=== PATIENT | female | born 1975 | race American Indian/Alaskan Native ===

== ENCOUNTER 2020-07-29 17:32 | Observation (INO) | payer BC ==
[2020-07-29 18:24] LABS: Mean Corpuscular HGB Conc 28 % (30-34); Platelet Count 394 K/mm3 (140-440); Red Blood Count 2.98 M/mm3 (3.65-5.03)
[2020-07-29 18:28] LABS: Hemoglobin 4.9 gm/dl (10.1-14.3)
[2020-07-29 18:29] LABS: Hematocrit 17.2 % (30.3-42.9); Mean Corpuscular Volume 58 fl (79-97); Red Cell Distribution Width 24.3 % (13.2-15.2)
[2020-07-29 18:36] LABS: INR 1.14 (0.87-1.13)
[2020-07-29 18:37] LABS: Partial Thromboplastin Time 29.2 Sec. (24.2-36.6)
[2020-07-29] MEDS ORDERED: SODIUM CHLORIDE 0.9% 500 ML 500 ML IV ONE (19:20)
[2020-07-29 19:33] LABS: Alanine Aminotransferase 21 units/L (7-56); Albumin 3.6 g/dL (3.9-5); Blood Urea Nitrogen 9 mg/dL (7-17); Hemolysis Index 14
[2020-07-29 19:36] LABS: BUN/Creatinine Ratio 15
--- NOTE | 2020-07-29 19:46 | Emergency Department Report ---
ED General Adult HPI - General Chief complaint: Recheck/Abnormal Lab/Rx Stated complaint: LOW HEMOGLOBIN PUI?: No Time Seen by Provider: 07/29/20 19:02 Source: patient, RN notes reviewed Mode of arrival: Ambulatory Limitations: No Limitations - History of Present Illness Initial comments: The patient was evaluated in the emergency department for symptoms described in the history of present illness. He/she was evaluated in the context of the global COVID-19 pandemic, which necessitated consideration that the patient might be at risk for infection with the virus that causes COVID-19. Institutional protocols and algorithms that pertain to the evaluation of patients at risk for COVID-19 are in a state of rapid change based on information released by regulatory bodies including the CDC and federal and state organizations. These policies and algorithms were followed during the patient's care in the emergency department. Please note that these policies, procedures and recommendations changed on a rapid basis. During the history and physical examination, I am chaperoned by Juno Goddard This is a 45-year-old female. She is not known to myself previously. She has a history of stroke, DVT, PFO, and is currently on Eliquis. 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 She has no residual stroke deficits. She is referred to the emergency room by her primary care doctor at [place] for asymptomatic anemia. Patient had routine laboratory testing today, which demonstrated anemia. Patient denies all complaints at this time. She denies heavy vaginal bleeding, hematemesis and bright red blood per rectum, new/different exertional shortness of breath. Patient states she feels like she is in her usual state of health; she indicates that if she were not referred to the emergency room by her primary care doctor, she would not have presented. -: This morning Severity scale (0 -10): 0 Improves with: none Worsens with: none Associated Symptoms: denies other symptoms - Related Data Allergies Allergy/AdvReac Type Severity Reaction Status Date / Time No Known Allergies Allergy Unverified 07/29/20 17:56 ED Review of Systems ROS: Stated complaint: LOW HEMOGLOBIN Other details as noted in HPI Comment: All other systems reviewed and negative ED Past Medical Hx - Past Medical History Previous Medical History?: Yes Hx CVA: Yes Hx Deep Vein Thrombosis: Yes Additional medical history: DVT to legs on Eliquis ED Physical Exam - General Limitations: No Limitations General appearance: alert, in no apparent distress - Head Head exam: Present: atraumatic, normocephalic - Eye Eye exam: Present: normal appearance, PERRL, EOMI, other (Bilateral conjunctiva are pale). Absent: nystagmus - ENT ENT exam: Present: normal exam, normal orophraynx, mucous membranes moist, normal external ear exam - Neck Neck exam: Present: normal inspection, full ROM. Absent: tenderness, meningismus - Respiratory Respiratory exam: Present: normal lung sounds bilaterally. Absent: respiratory distress, wheezes, rales, rhonchi, stridor, decreased breath sounds - Cardiovascular Cardiovascular Exam: Present: regular rate, normal rhythm, normal heart sounds. Absent: bradycardia, tachycardia, irregular rhythm, systolic murmur, diastolic murmur, rubs, gallop - GI/Abdominal GI/Abdominal exam: Present: soft, normal bowel sounds. Absent: distended, tenderness, guarding, rebound, rigid, pulsatile mass - Rectal Rectal exam: Present: normal inspection, normal rectal tone, heme (-) stool, other (Chaperoned by juno goddard). Absent: heme (+) stool, black stool, bloody stool - Extremities Exam Extremities exam: Present: normal inspection, full ROM, normal capillary refill, other (2+ pulses noted in the bilateral upper and lower extremities. There is no palpable cord. negative Homans sign. Muscular compartments are soft. The pelvis is stable.). Absent: pedal edema, calf tenderness - Back Exam Back exam: Present: normal inspection, full ROM. Absent: tenderness, CVA tenderness (R), CVA tenderness (L), paraspinal tenderness, vertebral tenderness - Neurological Exam Neurological exam: Present: alert, other (No facial droop. Tongue midline. Extraocular movements intact bilaterally. Facial sensation intact to light touch in V1, V2, V3 distribution bilaterally. 5 and a 5 strength in 4 extremities. Sensation intact to light touch in 4 extremities.). Absent: motor sensory deficit - Psychiatric Psychiatric exam: Present: normal affect, normal mood - Skin Skin exam: Present: warm, dry, intact, normal color. Absent: rash ED Course Vital Signs 07/29/20 07/29/20 07/29/20 17:56 19:16 19:21 Temperature 98.8 F Pulse Rate 69 70 Respiratory 16 16 Rate Blood Pressure 160/80 Blood Pressure 170/88 [Right] O2 Sat by Pulse 100 100 Oximetry 07/29/20 07/29/20 20:30 20:45 Temperature 97.9 F 98.3 F Pulse Rate 70 70 Respiratory 18 15 Rate Blood Pressure 149/83 144/72 Blood Pressure [Right] O2 Sat by Pulse 100 100 Oximetry - Reevaluation(s) Reevaluation #1: 07/29/20 19:59 Differential diagnosis, including but not limited to: Laboratory error, anemia, GI bleed, renal insufficiency, hepatic insufficiency Consumptive coagulopathy Assessment and plan: 45-year-old female, here with asymptomatic anemia. She is afebrile with reassuring vital signs with the exception of elevated blood pressure. She denies gynecologic bleeding, rectal bleeding, and hematemesis. She is guaiac negative on rectal examination. Laboratory studies otherwise unremarkable. We recommended packed red blood cell transfusion, and admission for observation. Patient is amenable to this plan of care. We will discuss with hospitalist to arrange definitive care. She last took her Eliquis at 430 this afternoon. 07/29/20 19:59 Reevaluation #2: 07/29/20 21:41 Dr Carlos Sullivan to admit ED Medical Decision Making - Lab Data Result diagrams: 07/29/20 18:13 07/29/20 19:09 Vital Signs 07/29/20 07/29/20 07/29/20 17:56 19:16 19:21 Temperature 98.8 F Pulse Rate 69 70 Respiratory 16 16 Rate Blood Pressure 160/80 Blood Pressure 170/88 [Right] O2 Sat by Pulse 100 100 Oximetry Lab Results 07/29/20 07/29/20 07/29/20 Range/Units 18:13 18:13 18:13 WBC 5.3 (4.5-11.0) K/mm3 RBC 2.98 L (3.65-5.03) M/mm3 Hgb 4.9 L* (10.1-14.3) gm/dl Hct 17.2 L* (30.3-42.9) % MCV 58 L (79-97) fl MCH 16 L (28-32) pg MCHC 28 L (30-34) % RDW 24.3 H (13.2-15.2) % Plt Count 394 (140-440) K/mm3 PT 14.5 (12.2-14.9) Sec. INR 1.14 H (0.87-1.13) APTT 29.2 (24.2-36.6) Sec. Sodium (137-145) mmol/L Potassium (3.6-5.0) mmol/L Chloride (98-107) mmol/L Carbon Dioxide (22-30) mmol/L Anion Gap mmol/L BUN (7-17) mg/dL Creatinine (0.6-1.2) mg/dL Estimated GFR ml/min BUN/Creatinine Ratio % Glucose (65-100) mg/dL Calcium (8.4-10.2) mg/dL Magnesium (1.7-2.3) mg/dL Total Bilirubin (0.1-1.2) mg/dL AST (5-40) units/L ALT (7-56) units/L Alkaline Phosphatase (35-129) units/L Total Creatine Kinase (30-135) units/L Total Protein (6.3-8.2) g/dL Albumin (3.9-5) g/dL Albumin/Globulin Ratio % HCG, Quant (0-4) mIU/mL Blood Type B POSITIVE Antibody Screen Negative Crossmatch See Detail 07/29/20 07/29/20 Range/Units 19:09 19:09 WBC (4.5-11.0) K/mm3 RBC (3.65-5.03) M/mm3 Hgb (10.1-14.3) gm/dl Hct (30.3-42.9) % MCV (79-97) fl MCH (28-32) pg MCHC (30-34) % RDW (13.2-15.2) % Plt Count (140-440) K/mm3 PT (12.2-14.9) Sec. INR (0.87-1.13) APTT (24.2-36.6) Sec. Sodium 140 (137-145) mmol/L Potassium 4.3 (3.6-5.0) mmol/L Chloride 110.3 H (98-107) mmol/L Carbon Dioxide 20 L (22-30) mmol/L Anion Gap 14 mmol/L BUN 9 (7-17) mg/dL Creatinine 0.6 (0.6-1.2) mg/dL Estimated GFR > 60 ml/min BUN/Creatinine Ratio 15 % Glucose 86 (65-100) mg/dL Calcium 8.0 L (8.4-10.2) mg/dL Magnesium 1.90 (1.7-2.3) mg/dL Total Bilirubin 0.20 (0.1-1.2) mg/dL AST 21 (5-40) units/L ALT 21 (7-56) units/L Alkaline Phosphatase 70 (35-129) units/L Total Creatine Kinase 96 (30-135) units/L Total Protein 6.6 (6.3-8.2) g/dL Albumin 3.6 L (3.9-5) g/dL Albumin/Globulin Ratio 1.2 % HCG, Quant < 2 (0-4) mIU/mL Blood Type Antibody Screen Crossmatch Critical Care Time: Yes Critical care time in (mins) excluding proc time.: 35 Critical care attestation.: If time is entered above; I have spent that time in minutes in the direct care of this critically ill patient, excluding procedure time. ED Disposition Clinical Impression: Anticoagulated, Anemia, History of hypertension, History of stroke, History of DVT (deep vein thrombosis) Disposition: OP ADMIT IP TO THIS HOSP Is pt being admited?: Yes Does the pt Need Aspirin: No Condition: Good Referrals: PRIMARY CARE, [Primary Care Provider] - 3-5 Days
[2020-07-29] MEDS ORDERED: MAGNESIUM HYDROXIDE (MOM) ORAL LIQD UDC PO PRN (22:28)
[2020-07-29] MEDS ORDERED: ACETAMINOPHEN 325 MG TAB PO PRN (22:28)
[2020-07-29] MEDS ORDERED: ONDANSETRON 4 MG/2 ML INJ IV PRN (22:28)
--- NOTE | 2020-07-29 22:35 | History and Physical Report ---
History of Present Illness Date of examination: 07/29/20 Date of admission: 07/29/20 21:41 Chief complaint: Abnormal Labs. History of present illness: 45-year-old female with known history of CVA, DVT and PFO ( Patent foramen Ovale) and currently on Eliquis sent to the emergency room today by her primary care physician for an abnormal lab. Patient had a routine lab tests done about 24 hours prior to reporting to the emergency room and hemoglobin was said to be low at 4.5. Patient denies any vaginal bleeding, no hematemesis, no bright red blood per rectum, denies any chest pain or shortness of breath. Patient denies any headache or dizziness. Patient indicates that he has known history of blood clots and has been on anticoagulation. She follows up with primary care physician at [facility]. Work-up in the emergency room today reveals hemoglobin of 4.9 and hematocrit of 17.2. Patient has been scheduled for blood transfusion. Attempts has been made to have patient's record from [facility]. Past History Past Medical History: DVT, hypertension, stroke Past Surgical History: Social history: no significant social history Family history: no significant family history Medications and Allergies Allergies Allergy/AdvReac Type Severity Reaction Status Date / Time No Known Allergies Allergy Verified 07/29/20 22:33 Review of Systems Constitutional: no fever, no chills Ears, nose, mouth and throat: no nasal congestion, no sore throat Cardiovascular: no chest pain, no palpitations Respiratory: no cough, no shortness of breath Gastrointestinal: no abdominal pain, no nausea, no vomiting, no diarrhea, no BRBPR, no melena Genitourinary Female: no pelvic pain, no flank pain, no dysuria, no hematuria Musculoskeletal: no neck pain, no low back pain Integumentary: no rash, no pruritis Neurological: no headaches, no confusion Psychiatric: no anxiety, no depression Endocrine: no polyphagia, no polydipsia, no polyuria, no nocturia Exam - Constitutional Vitals: Temp Pulse Resp BP Pulse Ox 98.1 F 70 14 143/77 100 07/29/20 22:10 07/29/20 22:20 07/29/20 22:20 07/29/20 22:20 07/29/20 22:20 General appearance: Present: no acute distress, well-nourished, other (Mo derately pale) - EENT Eyes: Present: PERRL, EOM intact. Absent: scleral icterus ENT: hearing intact, clear oral mucosa, dentition normal - Neck Neck: Present: supple, normal ROM - Respiratory Respiratory effort: normal Respiratory: bilateral: CTA - Cardiovascular Rhythm: regular Heart Sounds: Present: S1 & S2. Absent: gallop, systolic murmur, diastolic murmur, rub, click - Extremities Extremities: no ischemia, pulses intact, pulses symmetrical, No edema, Full ROM Peripheral Pulses: within normal limits - Abdominal General gastrointestinal: Present: soft, non-tender, non-distended, normal bowel sounds. Absent: mass - Integumentary Integumentary: Present: clear, warm, dry. Absent: rash - Musculoskeletal Musculoskeletal: strength equal bilaterally - Psychiatric Psychiatric: appropriate mood/affect, intact judgment & insight, memory intact, cooperative - Neurologic Neurologic: CNII-XII intact, no focal deficits, moves all extremities Results - Labs CBC & Chem 7: 07/29/20 18:13 07/29/20 19:09 Labs: Abnormal lab results 07/29/20 07/29/20 07/29/20 Range/Units 18:13 18:13 18:13 RBC 2.98 L (3.65-5.03) M/mm3 Hgb 4.9 L* (10.1-14.3) gm/dl Hct 17.2 L* (30.3-42.9) % MCV 58 L (79-97) fl MCH 16 L (28-32) pg MCHC 28 L (30-34) % RDW 24.3 H (13.2-15.2) % INR 1.14 H (0.87-1.13) Chloride (98-107) mmol/L Carbon Dioxide (22-30) mmol/L Calcium (8.4-10.2) mg/dL Albumin (3.9-5) g/dL Crossmatch See Detail 07/29/20 Range/Units 19:09 RBC (3.65-5.03) M/mm3 Hgb (10.1-14.3) gm/dl Hct (30.3-42.9) % MCV (79-97) fl MCH (28-32) pg MCHC (30-34) % RDW (13.2-15.2) % INR (0.87-1.13) Chloride 110.3 H (98-107) mmol/L Carbon Dioxide 20 L (22-30) mmol/L Calcium 8.0 L (8.4-10.2) mg/dL Albumin 3.6 L (3.9-5) g/dL Crossmatch Assessment and Plan - Patient Problems (1) Anemia Current Visit: Yes Status: Acute Plan to address problem: Patient is asymptomatic. Patient is being prepared for blood transfusion. Stool guaiac done in the emergency room was negative. We will monitor CBC. (2) History of DVT (deep vein thrombosis) Current Visit: Yes Status: Acute Plan to address problem: Patient has been on Eliquis. We will hold anticoagulation at this time in view of the anemia Will consult heme/Onc for evaluation and recommendation regarding anticoagulation. (3) History of hypertension Current Visit: Yes Status: Acute Plan to address problem: We will resume routine home medications once reconciled and monitor vital signs closely. (4) History of stroke Current Visit: Yes Status: Acute Plan to address problem: No residual deficits. (5) DVT prophylaxis Current Visit: Yes Status: Acute Plan to address problem: Patient placed on sequential compression device. (6) Full code status Current Visit: Yes Status: Acute Plan to address problem: Patient is a full code.
[2020-07-30 06:19] LABS: Mean Corpuscular HGB Conc 30 % (30-34); Platelet Count 374 K/mm3 (140-440); Red Blood Count 2.91 M/mm3 (3.65-5.03)
[2020-07-30 06:29] LABS: INR 1.08 (0.87-1.13)
[2020-07-30 06:42] LABS: Blood Urea Nitrogen 10 mg/dL (7-17); Calcium 8.7 mg/dL (8.4-10.2); Hemolysis Index 140
[2020-07-30 06:47] LABS: BUN/Creatinine Ratio 20
[2020-07-30 07:05] LABS: Hematocrit 18.2 % (30.3-42.9); Hemoglobin 5.5 gm/dl (10.1-14.3); Mean Corpuscular Volume 63 fl (79-97)
[2020-07-30] MEDS ORDERED: SODIUM CHLORIDE 0.9% 500 ML 500 ML IV SCH (09:00)
[2020-07-30 09:41] LABS: Anisocytosis 3+; Total Cells Counted 100
[2020-07-30 09:42] LABS: Hypochromasia 2+; Ovalocytes Few; Schistocytes Few
[2020-07-30 09:43] LABS: Platelet Estimate Consistent w Auto
[2020-07-30 10:10] LABS: Hematocrit 20.4 % (30.3-42.9)
[2020-07-30 10:31] LABS: Hemoglobin 5.9 gm/dl (10.1-14.3)
[2020-07-30] MEDS ORDERED: SODIUM CHLORIDE 0.9% 500 ML 500 ML IV NR (11:09)
--- NOTE | 2020-07-30 11:49 | Progress Note ---
Assessment and Plan Assessment and plan: 45-year-old female with known history of CVA, DVT and PFO ( Patent foramen Ovale) and currently on Eliquis sent to the emergency room today by her primary care physician for an abnormal lab. Patient had a routine lab tests done about 24 hours prior to reporting to the emergency room and hemoglobin was said to be low at 4.5. Patient denies any vaginal bleeding, no hematemesis, no bright red blood per r ectum, denies any chest pain or shortness of breath. Patient denies any headache or dizziness. Patient indicates that he has known history of blood clots and has been on anticoagulation. She follows up with primary care physician at [facility]. Work-up in the emergency room today reveals hemoglobin of 4.9 and hematocrit of 17.2. Patient has been scheduled for blood transfusion. Attempts has been made to have patient's record from [facility].-Reattempt is being made this morning 07/30: Patient in no acute distress at this time. Will give 2 additional units of blood the recent information provided by the patient about menorrhagia. Await hematology evaluation. We will still awaiting records from [facility] but I believe patient will need to follow back up at [place] for possible reevaluation of PFO for possible closure. 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 They may also at the same time evaluate for possible IVC filter. 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 and I did encourage her to use her compression stockings and to walk around often. Anticipate discharge in a.m. if no other work-up is required. Also an outpatient follow-up with [employer] [facility] is recommended (1) Anemia-iron deficiency Current Visit: Yes Status: Acute Plan to address problem: Patient is asymptomatic. Patient is being prepared for blood transfusion. Stool guaiac done in the emergency room was negative. We will monitor CBC. (2) History of DVT (deep vein thrombosis) Current Visit: Yes Status: Acute Plan to address problem: Patient has been on Eliquis. We will hold anticoagulation at this time in view of the anemia Will consult heme/Onc for evaluation and recommendation regarding anticoagulation. (3) History of hypertension Current Visit: Yes Status: Acute Plan to address problem: We will resume routine home medications once reconciled and monitor vital signs closely. (4) History of stroke Current Visit: Yes Status: Acute Plan to address problem: No residual deficits. (5) menorrhagia (6) DVT prophylaxis Current Visit: Yes Status: Acute Plan to address problem: Patient placed on sequential compression device. (7) Full code status Current Visit: Yes Status: Acute Plan to address problem: Patient is a full code. History Interval history: Patient seen and examined resting comfortably no acute distress. She tells me that she was diagnosed with a stroke and PFO at [facility]. She also had a lower extremity DVT for which she was put on Eliquis. Prior to that she uses 3 pads a day for her menses but now she uses about 15. Hospitalist Physical - Physical exam Narrative exam: VITAL SIGNS: Reviewed. GENERAL: The patient appears normally developed, Vital signs as documented. HEAD: No signs of head trauma. EYES: Pupils are equal. Extraocular motions intact. EARS: Hearing grossly intact. MOUTH: Oropharynx is normal. NECK: No adenopathy, no JVD. CHEST: Chest with clear breath sounds bilaterally. No wheezes, rales, or rhonchi. CARDIAC: Regular rate and rhythm. S1 and S2, without murmurs, gallops, or rubs . VASCULAR: No Edema. Peripheral pulses normal and equal in all extremities. ABDOMEN: Soft, non tender and non distended. No rebound or guarding, and no masses palpated. Bowel Sounds normal. MUSCULOSKELETAL: Good range of motion of all major joints. Extremities without clubbing, cyanosis or edema. NEUROLOGIC EXAM: Alert and oriented x 3 No focal sensory or strength deficits. Speech normal. Follows commands. PSYCHIATRIC: Mood normal. SKIN: detail exam as documented in skin assessment - Constitutional Vitals: Temp Pulse Resp BP Pulse Ox 98.5 F 65 20 148/65 98 07/30/20 11:00 07/30/20 11:00 07/30/20 11:00 07/30/20 11:00 07/30/20 11:00 General appearance: Present: no acute distress, well-nourished, other (Moderately pale) Results - Labs CBC & Chem 7: 07/30/20 09:42 07/30/20 05:40 Labs: Laboratory Last Values WBC 5.5 K/mm3 (4.5-11.0) 07/30/20 05:40 RBC 2.91 M/mm3 (3.65-5.03) L 07/30/20 05:40 Hgb 5.9 gm/dl (10.1-14.3) L* 07/30/20 09:42 Hct 20.4 % (30.3-42.9) L 07/30/20 09:42 MCV 63 fl (79-97) L 07/30/20 05:40 MCH 19 pg (28-32) L 07/30/20 05:40 MCHC 30 % (30-34) 07/30/20 05:40 RDW 31.0 % (13.2-15.2) H 07/30/20 05:40 Plt Count 374 K/mm3 (140-440) 07/30/20 05:40 Add Manual Diff Complete 07/30/20 05:40 Total Counted 100 07/30/20 05:40 Seg Neuts % (Manual) 69.0 % (40.0-70.0) 07/30/20 05:40 Lymphocytes % (Manual) 20.0 % (13.4-35.0) 07/30/20 05:40 Monocytes % (Manual) 10.0 % (0.0-7.3) H 07/30/20 05:40 Eosinophils % (Manual) 1.0 % (0.0-4.3) 07/30/20 05:40 Nucleated RBC % Not Reportable 07/30/20 05:40 Seg Neutrophils # Man 3.8 K/mm3 (1.8-7.7) 07/30/20 05:40 Band Neutrophils # 0.0 K/mm3 07/30/20 05:40 Lymphocytes # (Manual) 1.1 K/mm3 (1.2-5.4) L 07/30/20 05:40 Abs React Lymphs (Man) 0.0 K/mm3 07/30/20 05:40 Monocytes # (Manual) 0.6 K/mm3 (0.0-0.8) 07/30/20 05:40 Eosinophils # (Manual) 0.1 K/mm3 (0.0-0.4) 07/30/20 05:40 Basophils # (Manual) 0.0 K/mm3 (0.0-0.1) 07/30/20 05:40 Metamyelocytes # 0.0 K/mm3 07/30/20 05:40 Myelocytes # 0.0 K/mm3 07/30/20 05:40 Promyelocytes # 0.0 K/mm3 07/30/20 05:40 Blast Cells # 0.0 K/mm3 07/30/20 05:40 WBC Morphology Not Reportable 07/30/20 05:40 Hypersegmented Neuts Not Reportable 07/30/20 05:40 Hyposegmented Neuts Not Reportable 07/30/20 05:40 Hypogranular Neuts Not Reportable 07/30/20 05:40 Smudge Cells Not Reportable 07/30/20 05:40 Toxic Granulation Not Reportable 07/30/20 05:40 Toxic Vacuolation Not Reportable 07/30/20 05:40 Dohle Bodies Not Reportable 07/30/20 05:40 Pelger-Huet Anomaly Not Reportable 07/30/20 05:40 Henrique Rods Not Reportable 07/30/20 05:40 Platelet Estimate Consistent w auto 07/30/20 05:40 Clumped Platelets Not Reportable 07/30/20 05:40 Plt Clumps, EDTA Not Reportable 07/30/20 05:40 Large Platelets Not Reportable 07/30/20 05:40 Giant Platelets Not Reportable 07/30/20 05:40 Platelet Satelliting Not Reportable 07/30/20 05:40 Plt Morphology Comment Not Reportable 07/30/20 05:40 RBC Morphology Not Reportable 07/30/20 05:40 Dimorphic RBCs Not Reportable 07/30/20 05:40 Polychromasia Not Reportable 07/30/20 05:40 Hypochromasia 2+ 07/30/20 05:40 Poikilocytosis Not Reportable 07/30/20 05:40 Anisocytosis 3+ 07/30/20 05:40 Microcytosis 2+ 07/30/20 05:40 Macrocytosis Not Reportable 07/30/20 05:40 Spherocytes Not Reportable 07/30/20 05:40 Pappenheimer Bodies Not Reportable 07/30/20 05:40 Sickle Cells Not Reportable 07/30/20 05:40 Target Cells Not Reportable 07/30/20 05:40 Tear Drop Cells Not Reportable 07/30/20 05:40 Ovalocytes Few 07/30/20 05:40 Helmet Cells Not Reportable 07/30/20 05:40 [place] Bodies Not Reportable 07/30/20 05:40 [place] Rings Not Reportable 07/30/20 05:40 Winnie Cells Not Reportable 07/30/20 05:40 Bite Cells Not Reportable 07/30/20 05:40 Crenated Cell Not Reportable 07/30/20 05:40 Elliptocytes Not Reportable 07/30/20 05:40 Acanthocytes (Spur) Not Reportable 07/30/20 05:40 Rouleaux Not Reportable 07/30/20 05:40 Hemoglobin C Crystals Not Reportable 07/30/20 05:40 Schistocytes Few 07/30/20 05:40 Malaria parasites Not Reportable 07/30/20 05:40 Christiano Bodies Not Reportable 07/30/20 05:40 Hem Pathologist Commnt No 07/30/20 05:40 PT 13.9 Sec. (12.2-14.9) 07/30/20 05:40 INR 1.08 (0.87-1.13) 07/30/20 05:40 APTT 29.2 Sec. (24.2-36.6) 07/29/20 18:13 Sodium 137 mmol/L (137-145) 07/30/20 05:40 Potassium 4.5 mmol/L (3.6-5.0) 07/30/20 05:40 Chloride 109.6 mmol/L (98-107) H 07/30/20 05:40 Carbon Dioxide 19 mmol/L (22-30) L 07/30/20 05:40 Anion Gap 13 mmol/L 07/30/20 05:40 BUN 10 mg/dL (7-17) 07/30/20 05:40 Creatinine 0.5 mg/dL (0.6-1.2) L 07/30/20 05:40 Estimated GFR > 60 ml/min 07/30/20 05:40 BUN/Creatinine Ratio 20 % 07/30/20 05:40 Glucose 83 mg/dL (65-100) 07/30/20 05:40 Calcium 8.7 mg/dL (8.4-10.2) 07/30/20 05:40 Magnesium 1.90 mg/dL (1.7-2.3) 07/29/20 19:09 Total Bilirubin 0.20 mg/dL (0.1-1.2) 07/29/20 19:09 AST 21 units/L (5-40) 07/29/20 19:09 ALT 21 units/L (7-56) 07/29/20 19:09 Alkaline Phosphatase 70 units/L (35-129) 07/29/20 19:09 Total Creatine Kinase 96 units/L (30-135) 07/29/20 19:09 Total Protein 6.6 g/dL (6.3-8.2) 07/29/20 19:09 Albumin 3.6 g/dL (3.9-5) L 07/29/20 19:09 Albumin/Globulin Ratio 1.2 % 07/29/20 19:09 HCG, Quant < 2 mIU/mL (0-4) 07/29/20 19:09 Blood Type B POSITIVE 07/29/20 18:13 Antibody Screen Negative 07/29/20 18:13 Crossmatch See Detail 07/29/20 18:13 Active Medications - Current Medications Current Medications: Generic Name Dose Route Start Last Admin Trade Name Freq PRN Reason Stop Dose Admin Acetaminophen 650 mg 07/29/20 22:28 Acetaminophen 325 Mg Tab PO Q4H PRN Pain MILD(1-3)/Fever >100.5/PASTOR Atorvastatin Calcium 80 mg 07/30/20 22:00 Atorvastatin 40 Mg Tab PO QHS FAINA Sodium Chloride 500 mls @ 0 mls/hr 07/30/20 09:00 07/30/20 11:07 Nacl 0.9% 500 Ml IV 07/30/20 17:00 100 mls/hr ONCE FAINA Administration As Directed Sodium Chloride 500 mls @ 0 mls/hr 07/30/20 11:09 07/30/20 11:12 Nacl 0.9% 500 Ml IV 07/30/20 23:00 100 mls/hr ONCE NR Administration As Directed Magnesium Hydroxide 30 ml 07/29/20 22:28 Magnesium Hydroxide (Mom) Oral Liqd Udc PO Q4H PRN Constipation Ondansetron HCl 4 mg 07/29/20 22:28 Ondansetron 4 Mg/2 Ml Inj IV Q8H PRN Nausea And Vomiting Sodium Chloride 10 ml 07/30/20 10:00 07/30/20 11:07 Sodium Chloride 0.9% 10 Ml Flush Syringe IV 10 ml BID FAINA Administration Sodium Chloride 10 ml 07/29/20 22:28 Sodium Chloride 0.9% 10 Ml Flush Syringe IV PRN PRN LINE FLUSH
--- NOTE | 2020-07-30 15:55 | Hem/Onc Consultation ---
History of Present Illness - History of Present Illness HEME CONSULT BY TELEVISIT 45YO AA WOMAN with h/o stroke 2018-->no residual deficits has worked as a business teacher has been taking eliquis since 2018-->has had heavy menstrual bleeding says she has not felt weak or tired,k not craving ice feels fine-->drove bus at work this week went to [place] for lab testing-->found to have Hgb 5-->told to go to hospital since admission found to have severe anemia-->has received 3 units RBC says she feels the same as before--does notfeel bad has not been bleeding this week denies icterus or dark urine FHx neg for sickle trait or blood disorders PMH: stroke 2018--[place]--had dvt then too-->PFO found and fixed has been takign eliquis since then, followed by behavioral instructor Soc: neg for smoking or alcohol use home meds: eliquis, lipitor DATA REVIEWED BELOW IMP: severe anemia with low MCV, best explained by chronic heavy menstrual bleeding well-tolerated anemia doubt heme malignancy but also possible presumed to have severe iron deficiency (lab testing won't be interpretable after RBC transfusion) presumed clotting tendency in 2018 with h/o stroke REC: more RBC transfusions for goal Hgb 7 (this will also give her iron) labs to include Hgb electrophoresis, LDH, retic will try for telemed heme f/u after discharge Active Medications Acetaminophen (Acetaminophen 325 Mg Tab) 650 mg PO Q4H PRN PRN Reason: Pain MILD(1-3)/Fever >100.5/PASTOR Atorvastatin Calcium (Atorvastatin 40 Mg Tab) 80 mg PO QHS [facility] Laboratory Last Values WBC 5.5 K/mm3 (4.5-11.0) 07/30/20 05:40 Hgb 5.9 gm/dl (10.1-14.3) L* 07/30/20 09:42 Hct 20.4 % (30.3-42.9) L 07/30/20 09:42 MCV 63 fl (79-97) L 07/30/20 05:40 Plt Count 374 K/mm3 (140-440) 07/30/20 05:40 Hypochromasia 2+ 07/30/20 05:40 Poikilocytosis Not Reportable 07/30/20 05:40 Anisocytosis 3+ 07/30/20 05:40 Microcytosis 2+ 07/30/20 05:40 Creatinine 0.5 mg/dL (0.6-1.2) L 07/30/20 05:40 Total Bilirubin 0.20 mg/dL (0.1-1.2) 07/29/20 19:09 AST 21 units/L (5-40) 07/29/20 19:09 ALT 21 units/L (7-56) 07/29/20 19:09 Alkaline Phosphatase 70 units/L (35-129) 07/29/20 19:09 Crossmatch See Detail 07/29/20 18:13 Past History Past Medical History: DVT, hypertension, stroke Past Surgical History: Social history: no significant social history Family history: no significant family history Medications and Allergies Allergies Allergy/AdvReac Type Severity Reaction Status Date / Time No Known Allergies Allergy Verified 07/29/20 22:33 Active Meds: Active Medications Acetaminophen (Acetaminophen 325 Mg Tab) 650 mg PO Q4H PRN PRN Reason: Pain MILD(1-3)/Fever >100.5/PASTOR Atorvastatin Calcium (Atorvastatin 40 Mg Tab) 80 mg PO QHS [facility]INA Sodium Chloride (Nacl 0.9% 500 Ml) 500 mls @ 0 mls/hr IV ONCE FAINA Stop: 07/30/20 17:00 Last Admin: 07/30/20 11:07 Dose: 100 mls/hr Documented by: Sodium Chloride (Nacl 0.9% 500 Ml) 500 mls @ 0 mls/hr IV ONCE NR Stop: 07/30/20 23:00 Last Admin: 07/30/20 11:12 Dose: 100 mls/hr Documented by: Magnesium Hydroxide (Magnesium Hydroxide (Mom) Oral Liqd Udc) 30 ml PO Q4H PRN PRN Reason: Constipation Ondansetron HCl (Ondansetron 4 Mg/2 Ml Inj) 4 mg IV Q8H PRN PRN Reason: Nausea And Vomiting Sodium Chloride (Sodium Chloride 0.9% 10 Ml Flush Syringe) 10 ml IV BID FAINA Last Admin: 07/30/20 11:07 Dose: 10 ml Documented by: Sodium Chloride (Sodium Chloride 0.9% 10 Ml Flush Syringe) 10 ml IV PRN PRN PRN Reason: LINE FLUSH Exam - Constitutional Vitals: Last Vital Signs Temp 98.4 F 07/30/20 15:10 Pulse 62 07/30/20 15:10 Resp 20 07/30/20 15:10 BP 154/84 07/30/20 15:10 Pulse Ox 99 07/30/20 15:10 Results - Labs lab Results: Laboratory Results - last 24 hr 07/29/20 07/29/20 07/29/20 18:13 18:13 18:13 WBC 5.3 RBC 2.98 L Hgb 4.9 L* Hct 17.2 L* MCV 58 L MCH 16 L MCHC 28 L RDW 24.3 H Plt Count 394 Add Manual Diff Total Counted Seg Neuts % (Manual) Lymphocytes % (Manual) Monocytes % (Manual) Eosinophils % (Manual) Nucleated RBC % Seg Neutrophils # Man Band Neutrophils # Lymphocytes # (Manual) Abs React Lymphs (Man) Monocytes # (Manual) Eosinophils # (Manual) Basophils # (Manual) Metamyelocytes # Myelocytes # Promyelocytes # Blast Cells # WBC Morphology Hypersegmented Neuts Hyposegmented Neuts Hypogranular Neuts Smudge Cells Toxic Granulation Toxic Vacuolation Dohle Bodies Pelger-Huet Anomaly Henrique Rods Platelet Estimate Clumped Platelets Plt Clumps, EDTA Large Platelets Giant Platelets Platelet Satelliting Plt Morphology Comment RBC Morphology Dimorphic RBCs Polychromasia Hypochromasia Poikilocytosis Anisocytosis Microcytosis Macrocytosis Spherocytes Pappenheimer Bodies Sickle Cells Target Cells Tear Drop Cells Ovalocytes Helmet Cells [place] Bodies [place] Rings [place] Cells Bite Cells Crenated Cell Elliptocytes Acanthocytes (Spur) Rouleaux Hemoglobin C Crystals Schistocytes Malaria parasites Christiano Bodies Hem Pathologist Commnt PT 14.5 INR 1.14 H APTT 29.2 Sodium Potassium Chloride Carbon Dioxide Anion Gap BUN Creatinine Estimated GFR BUN/Creatinine Ratio Glucose Calcium Magnesium Total Bilirubin AST ALT Alkaline Phosphatase Total Creatine Kinase Total Protein Albumin Albumin/Globulin Ratio HCG, Quant Blood Type B POSITIVE Antibody Screen Negative Crossmatch See Detail 07/29/20 07/29/20 07/30/20 19:09 19:09 05:40 WBC 5.5 RBC 2.91 L Hgb 5.5 L* Hct 18.2 L* MCV 63 L MCH 19 L MCHC 30 RDW 31.0 H Plt Count 374 Add Manual Diff Complete Total Counted 100 Seg Neuts % (Manual) 69.0 Lymphocytes % (Manual) 20.0 Monocytes % (Manual) 10.0 H Eosinophils % (Manual) 1.0 Nucleated RBC % Not Reportable Seg Neutrophils # Man 3.8 Band Neutrophils # 0.0 Lymphocytes # (Manual) 1.1 L Abs React Lymphs (Man) 0.0 Monocytes # (Manual) 0.6 Eosinophils # (Manual) 0.1 Basophils # (Manual) 0.0 Metamyelocytes # 0.0 Myelocytes # 0.0 Promyelocytes # 0.0 Blast Cells # 0.0 WBC Morphology Not Reportable Hypersegmented Neuts Not Reportable Hyposegmented Neuts Not Reportable Hypogranular Neuts Not Reportable Smudge Cells Not Reportable Toxic Granulation Not Reportable Toxic Vacuolation Not Reportable Dohle Bodies Not Reportable Pelger-Huet Anomaly Not Reportable Henrique Rods Not Reportable Platelet Estimate Consistent w auto Clumped Platelets Not Reportable Plt Clumps, EDTA Not Reportable Large Platelets Not Reportable Giant Platelets Not Reportable Platelet Satelliting Not Reportable Plt Morphology Comment Not Reportable RBC Morphology Not Reportable Dimorphic RBCs Not Reportable Polychromasia Not Reportable Hypochromasia 2+ Poikilocytosis Not Reportable Anisocytosis 3+ Microcytosis 2+ Macrocytosis Not Reportable Spherocytes Not Reportable Pappenheimer Bodies Not Reportable Sickle Cells Not Reportable Target Cells Not Reportable Tear Drop Cells Not Reportable Ovalocytes Few Helmet Cells Not Reportable Verma-[place] Bodies Not Reportable [place] Rings Not Reportable [place] Cells Not Reportable Bite Cells Not Reportable Crenated Cell Not Reportable Elliptocytes Not Reportable Acanthocytes (Spur) Not Reportable Rouleaux Not Reportable Hemoglobin C Crystals Not Reportable Schistocytes Few Malaria parasites Not Reportable Christiano Bodies Not Reportable Hem Pathologist Commnt No PT INR APTT Sodium 140 Potassium 4.3 Chloride 110.3 H Carbon Dioxide 20 L Anion Gap 14 BUN 9 Creatinine 0.6 Estimated GFR > 60 BUN/Creatinine Ratio 15 Glucose 86 Calcium 8.0 L Magnesium 1.90 Total Bilirubin 0.20 AST 21 ALT 21 Alkaline Phosphatase 70 Total Creatine Kinase 96 Total Protein 6.6 Albumin 3.6 L Albumin/Globulin Ratio 1.2 HCG, Quant < 2 Blood Type Antibody Screen Crossmatch 07/30/20 07/30/20 07/30/20 05:40 05:40 09:42 WBC RBC Hgb 5.9 L* Hct 20.4 L MCV MCH MCHC RDW Plt Count Add Manual Diff Total Counted Seg Neuts % (Manual) Lymphocytes % (Manual) Monocytes % (Manual) Eosinophils % (Manual) Nucleated RBC % Seg Neutrophils # Man Band Neutrophils # Lymphocytes # (Manual) Abs React Lymphs (Man) Monocytes # (Manual) Eosinophils # (Manual) Basophils # (Manual) Metamyelocytes # Myelocytes # Promyelocytes # Blast Cells # WBC Morphology Hypersegmented Neuts Hyposegmented Neuts Hypogranular Neuts Smudge Cells Toxic Granulation Toxic Vacuolation Dohle Bodies Pelger-Huet Anomaly Henrique Rods Platelet Estimate Clumped Platelets Plt Clumps, EDTA Large Platelets Giant Platelets Platelet Satelliting Plt Morphology Comment RBC Morphology Dimorphic RBCs Polychromasia Hypochromasia Poikilocytosis Anisocytosis Microcytosis Macrocytosis Spherocytes Pappenheimer Bodies Sickle Cells Target Cells Tear Drop Cells Ovalocytes Helmet Cells [place] Bodies [place] Rings [place] Cells Bite Cells Crenated Cell Elliptocytes Acanthocytes (Spur) Rouleaux Hemoglobin C Crystals Schistocytes Malaria parasites Christiano Bodies Hem Pathologist Commnt PT 13.9 INR 1.08 APTT Sodium 137 Potassium 4.5 Chloride 109.6 H Carbon Dioxide 19 L Anion Gap 13 BUN 10 Creatinine 0.5 L Estimated GFR > 60 BUN/Creatinine Ratio 20 Glucose 83 Calcium 8.7 Magnesium Total Bilirubin AST ALT Alkaline Phosphatase Total Creatine Kinase Total Protein Albumin Albumin/Globulin Ratio HCG, Quant Blood Type Antibody Screen Crossmatch
[2020-07-30] MEDS ORDERED: ACETAMINOPHEN 325 MG TAB PO PRN (15:59)
[2020-07-30] MEDS ORDERED: diphenhydrAMINE 50 MG/ML VIAL IV PRN (16:00)
[2020-07-31 06:02] LABS: Hematocrit 27.9 % (30.3-42.9); Hemoglobin 8.5 gm/dl (10.1-14.3); Mean Corpuscular HGB Conc 31 % (30-34); Platelet Count 355 K/mm3 (140-440); Red Blood Count 4.17 M/mm3 (3.65-5.03)
[2020-07-31 06:13] LABS: Blood Urea Nitrogen 7 mg/dL (7-17); Calcium 8.6 mg/dL (8.4-10.2); Hemolysis Index 0
[2020-07-31 06:15] LABS: BUN/Creatinine Ratio 12; Mean Corpuscular Volume 67 fl (79-97); Red Cell Distribution Width 32.2 % (13.2-15.2)
--- NOTE | 2020-07-31 09:18 | Hem/Onc Progress Note ---
Subjective Interval history: HEME DATA REVIEW 45YO AA WOMAN with h/o stroke 2018-->no residual deficits outpt lab testing-->found to have Hgb 5-->told to go to hospital since admission found to have severe anemia-->has received 3 units RBC has been stable, HCT increased to 28 DATA REVIEWED BELOW IMP: severe anemia with low MCV, best explained by chronic heavy menstrual bleeding/iron defic presumed to have severe iron deficiency (lab testing won't be interpretable after RBC transfusion) doubt heme malignancy but also possible presumed clotting tendency in 2018 with h/o stroke-has been taking eliquis 5mg po bid REC: OK to plan discharge from heme perspective consider decreasing her eliquis dose to 2.5mg po bid for discharge try for AUTOMOTIVE METALSMITH f/u after discharge-consider pelvis u.s inpt before discharge Home Medications Medication Instructions Recorded Confirmed Last Taken Apixaban [Eliquis] 1 tab PO BID 07/31/20 07/31/20 Unknown Atorvastatin [Lipitor Tab] 80 mg PO QHS 07/31/20 07/31/20 07/30/20 21:30 Lisinopril [Zestril] 5 mg PO ONCE 07/31/20 07/31/20 07/29/20 09:00 Active Medications Acetaminophen (Acetaminophen 325 Mg Tab) 650 mg PO Q4H PRN PRN Reason: Pain MILD(1-3)/Fever >100.5/PASTOR Atorvastatin Calcium (Atorvastatin 40 Mg Tab) 80 mg PO QHS [facility] Last Admin: 07/30/20 21:49 Dose: 80 mg Documented by: Laboratory Last Values WBC 4.3 K/mm3 (4.5-11.0) L 07/31/20 05:26 Hgb 8.5 gm/dl (10.1-14.3) L 07/31/20 05:26 Hct 27.9 % (30.3-42.9) L D 07/31/20 05:26 MCV 67 fl (79-97) L 07/31/20 05:26 Plt Count 355 K/mm3 (140-440) 07/31/20 05:26 Percent Retic 1.43 % (0.78-2.58) 07/31/20 05:26 APTT 28.4 Sec. (24.2-36.6) 07/31/20 05:26 Lactate Dehydrogenase 205 units/L (91-180) H 07/31/20 05:26 Crossmatch See Detail 07/29/20 18:13 Objective - Constitutional Vitals: Last Vital Signs Temp 98.3 F 07/31/20 07:05 Pulse 62 07/31/20 07:05 Resp 18 07/31/20 07:05 BP 142/87 07/31/20 07:05 Pulse Ox 99 07/31/20 07:05 - Labs Lab Results: Laboratory Results - last 24 hr 07/29/20 07/30/20 07/30/20 18:13 05:40 09:42 WBC RBC Hgb 5.9 L* Hct 20.4 L MCV MCH MCHC RDW Plt Count Add Manual Diff Complete Total Counted 100 Seg Neuts % (Manual) 69.0 Lymphocytes % (Manual) 20.0 Monocytes % (Manual) 10.0 H Eosinophils % (Manual) 1.0 Nucleated RBC % Not Reportable Seg Neutrophils # Man 3.8 Band Neutrophils # 0.0 Lymphocytes # (Manual) 1.1 L Abs React Lymphs (Man) 0.0 Monocytes # (Manual) 0.6 Eosinophils # (Manual) 0.1 Basophils # (Manual) 0.0 Metamyelocytes # 0.0 Myelocytes # 0.0 Promyelocytes # 0.0 Blast Cells # 0.0 WBC Morphology Not Reportable Hypersegmented Neuts Not Reportable Hyposegmented Neuts Not Reportable Hypogranular Neuts Not Reportable Smudge Cells Not Reportable Toxic Granulation Not Reportable Toxic Vacuolation Not Reportable Dohle Bodies Not Reportable Pelger-Huet Anomaly Not Reportable Henrique Rods Not Reportable Platelet Estimate Consistent w auto Clumped Platelets Not Reportable Plt Clumps, EDTA Not Reportable Large Platelets Not Reportable Giant Platelets Not Reportable Platelet Satelliting Not Reportable Plt Morphology Comment Not Reportable RBC Morphology Not Reportable Dimorphic RBCs Not Reportable Polychromasia Not Reportable Hypochromasia 2+ Poikilocytosis Not Reportable Anisocytosis 3+ Microcytosis 2+ Macrocytosis Not Reportable Spherocytes Not Reportable Pappenheimer Bodies Not Reportable Sickle Cells Not Reportable Target Cells Not Reportable Tear Drop Cells Not Reportable Ovalocytes Few Helmet Cells Not Reportable Verma-[place] Bodies Not Reportable [place] Rings Not Reportable [place] Cells Not Reportable Bite Cells Not Reportable Crenated Cell Not Reportable Elliptocytes Not Reportable Acanthocytes (Spur) Not Reportable Rouleaux Not Reportable Hemoglobin C Crystals Not Reportable Schistocytes Few Malaria parasites Not Reportable Percent Retic Christiano Bodies Not Reportable Hem Pathologist Commnt No APTT Sodium Potassium Chloride Carbon Dioxide Anion Gap BUN Creatinine Estimated GFR BUN/Creatinine Ratio Glucose Calcium Lactate Dehydrogenase Blood Type B POSITIVE Antibody Screen Negative Crossmatch See Detail 07/31/20 07/31/20 07/31/20 05:26 05:26 05:26 WBC 4.3 L RBC 4.17 Hgb 8.5 L Hct 27.9 L D MCV 67 L MCH 20 L MCHC 31 RDW 32.2 H Plt Count 355 Add Manual Diff Total Counted Seg Neuts % (Manual) Lymphocytes % (Manual) Monocytes % (Manual) Eosinophils % (Manual) Nucleated RBC % Seg Neutrophils # Man Band Neutrophils # Lymphocytes # (Manual) Abs React Lymphs (Man) Monocytes # (Manual) Eosinophils # (Manual) Basophils # (Manual) Metamyelocytes # Myelocytes # Promyelocytes # Blast Cells # WBC Morphology Hypersegmented Neuts Hyposegmented Neuts Hypogranular Neuts Smudge Cells Toxic Granulation Toxic Vacuolation Dohle Bodies Pelger-Huet Anomaly Henrique Rods Platelet Estimate Clumped Platelets Plt Clumps, EDTA Large Platelets Giant Platelets Platelet Satelliting Plt Morphology Comment RBC Morphology Dimorphic RBCs Polychromasia Hypochromasia Poikilocytosis Anisocytosis Microcytosis Macrocytosis Spherocytes Pappenheimer Bodies Sickle Cells Target Cells Tear Drop Cells Ovalocytes Helmet Cells Verma-[place] Bodies [place] Rings [place] Cells Bite Cells Crenated Cell Elliptocytes Acanthocytes (Spur) Rouleaux Hemoglobin C Crystals Schistocytes Malaria parasites Percent Retic 1.43 Christiano Bodies Hem Pathologist Commnt APTT 28.4 Sodium 138 Potassium 4.0 Chloride 109.8 H Carbon Dioxide 20 L Anion Gap 12 BUN 7 Creatinine 0.6 Estimated GFR > 60 BUN/Creatinine Ratio 12 Glucose 80 Calcium 8.6 Lactate Dehydrogenase Blood Type Antibody Screen Crossmatch 07/31/20 05:26 WBC RBC Hgb Hct MCV MCH MCHC RDW Plt Count Add Manual Diff Total Counted Seg Neuts % (Manual) Lymphocytes % (Manual) Monocytes % (Manual) Eosinophils % (Manual) Nucleated RBC % Seg Neutrophils # Man Band Neutrophils # Lymphocytes # (Manual) Abs React Lymphs (Man) Monocytes # (Manual) Eosinophils # (Manual) Basophils # (Manual) Metamyelocytes # Myelocytes # Promyelocytes # Blast Cells # WBC Morphology Hypersegmented Neuts Hyposegmented Neuts Hypogranular Neuts Smudge Cells Toxic Granulation Toxic Vacuolation Dohle Bodies Pelger-Huet Anomaly Henrique Rods Platelet Estimate Clumped Platelets Plt Clumps, EDTA Large Platelets Giant Platelets Platelet Satelliting Plt Morphology Comment RBC Morphology Dimorphic RBCs Polychromasia Hypochromasia Poikilocytosis Anisocytosis Microcytosis Macrocytosis Spherocytes Pappenheimer Bodies Sickle Cells Target Cells Tear Drop Cells Ovalocytes Helmet Cells Verm[place] Bodies [place] Rings [place] Cells Bite Cells Crenated Cell Elliptocytes Acanthocytes (Spur) Rouleaux Hemoglobin C Crystals Schistocytes Malaria parasites Percent Retic Christiano Bodies Hem Pathologist Commnt APTT Sodium Potassium Chloride Carbon Dioxide Anion Gap BUN Creatinine Estimated GFR BUN/Creatinine Ratio Glucose Calcium Lactate Dehydrogenase 205 H Blood Type Antibody Screen Crossmatch Medications & Allergies - Medications Allergies/Adverse Reactions: Allergies No Known Allergies Allergy (Verified 07/29/20 22:33) Home Medications: Home Medications Medication Instructions Recorded Confirmed Last Taken Type Apixaban [Eliquis] 1 tab PO BID 07/31/20 07/31/20 Unknown History Atorvastatin [Lipitor Tab] 80 mg PO QHS 07/31/20 07/31/20 07/30/20 21:30 History Lisinopril [Zestril] 5 mg PO ONCE 07/31/20 07/31/20 07/29/20 09:00 History Active Medications: Generic Name Dose Route Start Last Admin Trade Name Freq PRN Reason Stop Dose Admin Acetaminophen 650 mg 07/29/20 22:28 Acetaminophen 325 Mg Tab PO Q4H PRN Pain MILD(1-3)/Fever >100.5/PASTOR Atorvastatin Calcium 80 mg 07/30/20 22:00 07/30/20 21:49 Atorvastatin 40 Mg Tab PO 80 mg QHS FAINA Administration Diphenhydramine HCl 25 mg 07/30/20 16:00 Diphenhydramine 50 Mg/Ml Vial IV Q6H PRN Itching Magnesium Hydroxide 30 ml 07/29/20 22:28 Magnesium Hydroxide (Mom) Oral Liqd Udc PO Q4H PRN Constipation Ondansetron HCl 4 mg 07/29/20 22:28 Ondansetron 4 Mg/2 Ml Inj IV Q8H PRN Nausea And Vomiting Sodium Chloride 10 ml 07/30/20 10:00 07/31/20 05:21 Sodium Chloride 0.9% 10 Ml Flush Syringe IV 10 ml BID FAINA Administration Sodium Chloride 10 ml 07/29/20 22:28 Sodium Chloride 0.9% 10 Ml Flush Syringe IV PRN PRN LINE FLUSH
--- NOTE | 2020-07-31 14:42 | Discharge Summary ---
Providers - Providers Date of Admission: 07/29/20 21:41 Date of discharge: 07/31/20 Attending physician: IRISH DUFF 07/30/20 06:45 Consult to Physician [CONS] Routine Comment: Consulting Provider: MERISSA PIERSON Physician Instructions: Reason For Exam: Anemia, H/O hypercoagulable state on Eliquis Primary care physician: APPLIED PSYCHOLOGY PROFESSOR Hospitalization Condition: Good Hospital course: Assessment and Plan Assessment and plan: 45-year-old female with known history of CVA, DVT and PFO ( Patent foramen Ovale) and currently on Eliquis sent to the emergency room today by her primary care physician for an abnormal lab. Patient had a routine lab tests done about 24 hours prior to reporting to the emergency room and hemoglobin was said to be low at 4.5. Patient denies any vaginal bleeding, no hematemesis, no bright red blood per rectum, denies any chest pain or shortness of breath. Patient denies any headache or dizziness. Patient indicates that he has known history of blood clots and has been on anticoagulation. She follows up with primary care physician at [facility]. Work-up in the emergency room today reveals hemoglobin of 4.9 and hematocrit of 17.2. Patient has been scheduled for blood transfusion. Attempts has been made to have patient's record from [facility].-Reattempt is being made this morning 07/30: Patient in no acute distress at this time. Will give 2 additional units of blood the recent information provided by the patient about menorrhagia. Await hematology evaluation. We will still awaiting records from [facility] but I believe patient will need to follow back up at [place] for possible reevaluation of PFO for possible closure. She also states that she has a it security project manager that she follows. They may also at the same time evaluate for possible IVC filter. 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 Anticipate discharge in a.m. if no other work-up is required. Also an outpatient follow-up with OPERATIONS RESEARCH DIRECTOR is recommended Heme-onc recommendations IMP: severe anemia with low MCV, best explained by chronic heavy menstrual bleeding/iron defic presumed to have severe iron deficiency (lab testing won't be interpretable after RBC transfusion) doubt heme malignancy but also possible presumed clotting tendency in 2018 with h/o stroke-has been taking eliquis 5mg po bid REC: OK to plan discharge from heme perspective consider decreasing her eliquis dose to 2.5mg po bid for discharge try for OPERATIONS RESEARCH DIRECTOR f/u after discharge-consider pelvis u.s inpt before discharge (1) Anemia-iron deficiency Current Visit: Yes Status: Acute Plan to address problem: Patient is asymptomatic. Patient is being prepared for blood transfusion. Stool guaiac done in the emergency room was negative. We will monitor CBC. Hemoglobin and hematocrit improved to 8.5 and 27.9 after blood transfusions Patient being discharged on ferrous gluconate 324 mg once a day Patient to follow-up with DIRECTOR RECORDS MANAGEMENT for menorrhagia and possible hysterectomy (2) History of DVT (deep vein thrombosis) Current Visit: Yes Status: Acute Plan to address problem: Patient has been on Eliquis. We will hold anticoagulation at this time in view of the anemia As per hematology we will decrease the Eliquis to 2.5 twice a day (3) History of hypertension Current Visit: Yes Status: Acute Plan to address problem: We will resume routine home medications once reconciled and monitor vital signs closely. Hypertension well controlled (4) History of stroke Current Visit: Yes Status: Acute Plan to address problem: No residual deficits. (5) menorrhagia (6) DVT prophylaxis Current Visit: Yes Status: Acute Plan to address problem: Patient placed on sequential compression device. Patient being discharged on Eliquis 2.5 twice a day (7) Full code status Current Visit: Yes Status: Acute Plan to address problem: Patient is a full code. History Interval history: Patient is being discharged today patient counseled about iron intake and follow-up with her OPERATIONS RESEARCH DIRECTOR for the menorrhagia which is the primary cause for her anemia Disposition: DC- TO HOME OR SELFCARE Final Discharge Diagnosis (Prints w/discharge instructions): Symptomatic anemia. Menorrhagia. Hypertension. History of DVT Time spent for discharge: 33 minutes - Discharge Diagnoses (1) Symptomatic anemia Status: Acute Comment: Secondary to chronic blood loss (2) History of DVT (deep vein thrombosis) Status: Acute (3) History of hypertension Status: Acute (4) History of stroke Status: Acute Core Measure Documentation - Palliative Care Palliative Care/ Comfort Measures: Not Applicable - Core Measures Any of the following diagnoses?: none Exam - Constitutional Vitals: Temp Pulse Resp BP Pulse Ox 98.0 F 60 18 160/82 100 04//21 11:09 07/31/20 11:09 07/31/20 11:09 07/31/20 11:09 07/31/20 11:09 General appearance: Present: no acute distress, well-nourished - EENT Eyes: Present: PERRL ENT: hearing intact, clear oral mucosa - Neck Neck: Present: supple, normal ROM - Respiratory Respiratory effort: normal Respiratory: bilateral: CTA - Cardiovascular Heart rate: 78 Rhythm: regular Heart Sounds: Present: S1 & S2. Absent: rub, click - Extremities Extremities: no ischemia, pulses symmetrical, No edema Peripheral Pulses: within normal limits - Abdominal General gastrointestinal: Present: soft, non-tender, non-distended, normal bowel sounds Female genitourinary: Present: normal - Rectal Rectal Exam: deferred - Integumentary Integumentary: Present: clear, warm, dry - Musculoskeletal Musculoskeletal: gait normal, strength equal bilaterally - Psychiatric Psychiatric: appropriate mood/affect, intact judgment & insight - Neurologic Neurologic: CNII-XII intact, moves all extremities - Allied Health Allied health notes reviewed: nursing, case management Plan Activity: no restrictions Diet: regular Follow up with: SANJAY JIMÉNEZ MD [Staff Physician] - 7 Days PRIMARY CARE, [Primary Care Provider] - 3-5 Days Prescriptions: Apixaban [Eliquis] 2.5 mg PO BID #60 Ferrous Gluconate [Ferrous Gluconate 324 MG] 324 mg PO QDAY #30 tablet
[2020-07-31 15:46] VITALS: BP 169/91
[2020-07-31 17:00] LABS: INR 1.01 (0.87-1.13)
--- NOTE | 2020-07-31 18:16 | Ultrasound Report ---
EXAMINATION: Complete pelvic ultrasound, 07/31/2020 CLINICAL INFORMATION: Heavy menstrual bleeding COMPARISON: No prior studies are available for comparison. FINDINGS: The uterus is normal in size measuring 10.2 x 5.7 x 6.8 cm. The endometrial thickness measures a maxi mum of 8 mm. Both adnexal regions appear within normal limits. Vascular flow is demonstrated to both adnexal regio ns. No free pelvic fluid is identified. IMPRESSION: 1. No sonographic abnormality of the pelvis. Signer Name: Hamida Enriquez MD Signed: 07/31/2020 6:12 PM Workstation Name: [id number]
== END 2020-07-31 18:05 | disposition home or self-care (01) ==
LOC: ED 17:32 → 3A 21:41 → 3B-SURG 23:19
PROVIDERS: ADMIT Internal Medicine Geriatric Medicine; ATTEND Internal Medicine
DX: D64.9 Anemia, unspecified (principal); D50.0 Iron deficiency anemia secondary to blood loss (chronic); I10 Essential (primary) hypertension; R79.1 Abnormal coagulation profile; Z86.718 Personal history of other venous thrombosis and embolism; Z79.01 Long term (current) use of anticoagulants; Z86.79 Personal history of other diseases of the circulatory system; Z86.73 Personal history of transient ischemic attack (TIA), and cerebral infarction without residual deficits; Z98.891 History of uterine scar from previous surgery
CPT/HCPCS: 36415; 36430; 76856; 80048; 80053; 82270; 82550; 83615; 83735; 84702; 85018; 85025; 85027; 85045; 85610; 85730; 86850; 86900; 86901; 86920; 99291; A9270; G0378; J7040; P9016; 85007